=== PATIENT | male | born 1975 | race Two or more races ===

== ENCOUNTER 2018-07-03 02:07 | Emergency (ER) | payer OTHER ==
[2018-07-03 02:29] VITALS: RESP 20; TEMP 96.2
[2018-07-03] MEDS ORDERED: SODIUM CHLORIDE 0.9% 250 ML 250 ML IV ONE (02:56)
[2018-07-03 03:20] LABS: BASOPHILS % (AUTO) 1 % (0-3); EOSINOPHILS % (AUTO) 1 % (0-9); HEMATOCRIT 47 % (39-53); HEMOGLOBIN 16.4 gm/dl (13.5-17.7); LYMPHOCYTES % (AUTO) 53.5 % (10-50); MEAN CORPUSCULAR HEMOGLOBIN 31.6 pg (27.0-32.0); MEAN CORPUSCULAR HGB CONC 35.1 gm/dl (32.0-36.0); MEAN CORPUSCULAR VOLUME 90 fL (80-100); NEUTROPHILS % (AUTO) 36.1 % (37-80)
[2018-07-03 03:24] LABS: APPEARANCE,URINE Clear; BILIRUBIN,URINE NEGATIVE (NEGATIVE); COLOR,URINE Yellow; GLUCOSE, URINE (UA) NEGATIVE (NEGATIVE); KETONES,URINE NEGATIVE (NEGATIVE); LEUKOCYTE ESTERASE ,URINE NEGATIVE (NEGATIVE); NITRATE,URINE NEGATIVE (NEGATIVE); OCCULT BLOOD,URINE NEGATIVE (NEG-TRACE)
[2018-07-03 03:34] LABS: AMPHETAMINES NEGATIVE (NEGATIVE); BACTERIA NEGATIVE (< 1+); BARBITUATES NEGATIVE (NEGATIVE); BENZODIAZEPINES NEGATIVE (NEGATIVE); CANNABINOL(THC) NEGATIVE (NEGATIVE); COCAINE(COC) NEGATIVE (NEGATIVE); CRYSTALS NEGATIVE (0-3 AVE/HPF); EPITHELIAL CELLS 0-3 (SQUAMOUS); METHADONE NEGATIVE (NEGATIVE); METHAMPHETAMINES NEGATIVE (NEGATIVE); OPIATES(OPI) NEGATIVE (NEGATIVE); OXYCODONE(OXY) NEGATIVE (NEGATIVE); PROPOXYPHENE(PPX) NEGATIVE (NEGATIVE); RBC,URINE NEG (0-3AV/HPF); TRICYCLIC ANTIDEPRESSANTS NEGATIVE (NEGATIVE); WBC,URINE 0-1 (0-5AV/HPF)
[2018-07-03 03:48] LABS: ALBUMIN 3.9 gm/dl (3.4-5.0); ALCOHOL < 0.003 gm/dl (0.000-0.08); ALKALINE PHOSPHATASE 125 IU/L (46-116); ALT 94 IU/L (14-63); AST 53 IU/L (15-37); BILIRUBIN,TOTAL 0.7 mg/dl (0.2-1.0); BLOOD UREA NITROGEN 12 mg/dl (7-18); CALCIUM 8.6 mg/dl (8.5-10.1); CARBON DIOXIDE 25.4 mEq/L (21-32); CHLORIDE 103 mMol/L (98-107); CREATININE 0.76 mg/dl (0.80-1.30); GLUCOSE 105 mg/dl (74-106); POTASSIUM 3.5 mMol/L (3.5-5.1); SODIUM 137 mMol/L (136-145); THYROID STIMULATING HORMONE 2.818 uIU/ml (0.358-3.740); TOTAL PROTEIN 8.2 gm/dl (6.4-8.2)
[2018-07-03 04:29] VITALS: BP 135/82; PULSE 47; O2SAT 97
== END 2018-07-03 04:20 | disposition home or self-care (01) | DRG 880 ==
LOC: ED 02:07
DX: F41.0 Panic disorder [episodic paroxysmal anxiety] (principal); R53.1 Weakness
CPT/HCPCS: 70450; 80053; 80305; 80307; 81001; 84443; 85025; 93005; 99283; 99284

== ENCOUNTER 2018-07-25 01:19 | Emergency (ER) | payer OTHER ==
[2018-07-25 01:24] VITALS: RESP 20; TEMP 96
[2018-07-25 01:41] VITALS: BP 140/78; PULSE 69; O2SAT 98
[2018-07-25] MEDS ORDERED: APAP/HYDROCODONE 1 EACH TABLET PO ONE (01:54)
[2018-07-25] MEDS ORDERED: LIDOCAINE BUFFERED 1% 50 ML SOL SC ONE (01:54)
[2018-07-25] MEDS ORDERED: APAP/HYDROCODONE 1 EACH TABLET ONE (02:00)
[2018-07-25] MEDS ORDERED: TDAP VACCINE 0.5 ML SUS IM ONE ×2 (02:01→02:02)
[2018-07-25] MEDS ORDERED: LIDOCAINE HCL 1% MDV 50 ML SOL SC ONE (02:01)
[2018-07-25] MEDS ORDERED: LIDOCAINE HCL 1% MPF 30 SOL ONE (02:02)
[2018-07-25] MEDS ORDERED: BACITRACIN 500 U/GM OIN TOP ONE ×2 (02:43→02:46)
== END 2018-07-25 02:51 | disposition home or self-care (01) | DRG 605 ==
LOC: ED 01:19
DX: S01.01XA Laceration without foreign body of scalp, initial encounter (principal); W22.8XXA Striking against or struck by other objects, initial encounter
CPT/HCPCS: 12001; 90471; 90715; 99284; A9270-GY; J2001